=== PATIENT | female | born 1955 | race Caucasian/White ===

== ENCOUNTER 2022-09-26 09:50 | Emergency (ER) | payer MEDICARE, MEDICAID ==
[~2022-09-26] VITALS: Ht 137.2 cm; Wt 43.2 kg
--- NOTE | 2022-09-26 11:00 | NUR ---
MRI SCREENING FORM FAXED
[2022-09-26] MEDS ORDERED: morphine 10mg/ml inj. IV ONE (11:15)
[2022-09-26 12:39] LABS: BASOPHILS % (AUTO) 0.6 % (0-1); EOSINOPHILS # (AUTO) 0.1 X10'3 (0-0.9); EOSINOPHILS % (AUTO) 2.6 % (0-6); HEMATOCRIT 37.3 % (35.0-45.0); HEMOGLOBIN 12.1 g/dl (12.0-16.0); LYMPHOCYTES # (AUTO) 0.7 X10'3 (1.1-4.8); LYMPHOCYTES % (AUTO) 15.4 % (21-51); MEAN CORPUSCULAR HEMOGLOBIN 31.8 PG (27.0-31.0); MEAN CORPUSCULAR HGB CONC 32.5 g/dL (33.0-36.5); MEAN CORPUSCULAR VOLUME 97.9 FL (78-98); MEAN PLATELET VOLUME 6.9 FL (7.4-10.4); MONOCYTES # (AUTO) 0.4 X10'3 (0-0.9); NEUTROPHILS # (AUTO) 3.6 X10'3 (1.8-7.7); NEUTROPHILS % (AUTO) 73.4 % (42-75); PLATELET COUNT 258 X10'3 (140-440); RED BLOOD COUNT 3.81 X10'6 (4.20-5.60); RED CELL DISTRIBUTION WIDTH 14.8 % (11.5-14.5); WHITE BLOOD COUNT 4.8 X10'3 (4.5-11.0)
[2022-09-26 12:48] LABS: ANION GAP 10 (8-16); CHLORIDE 105 MMOL/L (99-107); POTASSIUM 4.4 MMOL/L (3.5-5.1); SODIUM 140 MMOL/L (135-145); TOTAL CARBON DIOXIDE 24.8 MMOL/L (24-32)
[2022-09-26 12:53] LABS: ALANINE AMINOTRANSFERASE 19 U/L (12-78); ALBUMIN 3.1 G/DL (3.4-5.0); ALBUMIN/GLOBULIN RATIO 0.9 (1.1-1.5); ALKALINE PHOSPHATASE 81 IU/L (46-116); ASPARTATE AMINO TRANSFERASE 22 U/L (10-37); BILIRUBIN,TOTAL 0.3 MG/DL (0.1-1.0); BLOOD UREA NITROGEN 10 MG/DL (7-18); BUN/CREATININE RATIO 15.2 (10.0-20.0); CALCIUM 8.9 MG/DL (8.5-10.1); CREATININE 0.66 MG/DL (0.40-0.90); GLUCOSE 78 MG/DL (70-104); TOTAL PROTEIN 6.4 G/DL (6.4-8.2); eGFR 90 ML/MIN
--- NOTE | 2022-09-26 14:38 | NUR ---
Patient denied urinary retention history or any issue with urination. Waller catheter discontinued
[2022-09-26] MEDS ORDERED: morphine 4 MG/ML inj SYRINge IV ONE (14:45)
[2022-09-26] MEDS ORDERED: morphine IR (immed. release) 30mg tablet PO PRN (16:50)
--- NOTE | 2022-09-26 17:00 | NUR ---
Report given to DANDY Moran to continue the care. Patient already received discharge instructions from me at earlier time. Patient still has 2 peripheral IVs that need to come out, this was endorsed to DANDY Moran. Per charge nurse Hudson, we are still waiting for arrangement of patient transportation back home and that patient has been referred to [facility] Nurse [facility] to assist.
--- NOTE | 2022-09-26 17:59 | NUR ---
PTS PERIPHERAL IVS (2) TAKEN OUT. PT BRIEF CHANGED. PT PUT ON COMMODE PER REQUEST OF PATIENT. AWAITING TRANSPORTATION HOME.
[2022-09-26 18:30] VITALS: BP 124/67
== END 2022-09-26 18:33 | disposition home or self-care (01) ==
LOC: ER 09:51
DX: R10.12 Left upper quadrant pain (principal); K21.9 Gastro-esophageal reflux disease without esophagitis; J44.9 Chronic obstructive pulmonary disease, unspecified; G89.29 Other chronic pain; M54.9 Dorsalgia, unspecified; I10 Essential (primary) hypertension
CPT/HCPCS: 36415; 74181; 80053; 84145; 85025; 99285; J2270